=== PATIENT | male | born 1990 | race African-American/Black ===

== ENCOUNTER 2019-07-15 14:20 | Emergency (ER) | payer OTHER ==
[~2019-07-15] VITALS: Ht 170.2 cm; Wt 63.5 kg
[2019-07-15] MEDS ORDERED: TAMIFLU75 MG PO (16:19)
[2019-07-15] MEDS ORDERED: PROMETH-CODEIN 65 ML PO (16:20)
[2019-07-15 16:29] VITALS: BP 121/68
== END 2019-07-15 16:33 | disposition home or self-care (01) ==
LOC: ER 14:20
DX: R05 Cough (principal); R09.81 Nasal congestion

== ENCOUNTER 2019-11-30 23:02 | Emergency (ER) | payer OTHER ==
[~2019-11-30] VITALS: Ht 172.7 cm; Wt 63.5 kg
[~2019-11-30 23:02] MED LIST: PROMETH-CODEIN 65 ML PO; TAMIFLU75 MG PO
[2019-12-01 00:03] LABS: HEMATOCRIT 46.4 % (42.0-52.0); HEMOGLOBIN 15.9 gm/dL (14.0-18.0); MCH 32.2 pg (26.0-34.0); MCHC 34.3 g/dL (28.0-37.0); MCV 93.8 fL (80.0-100.0); PLATELET COUNT 137 thou/uL (150-400); RBC 4.95 mil/uL (4.50-6.00); RDW 13.7 % (10.5-14.5); WBC 4.2 thou/uL (4.0-11.0)
[2019-12-01 00:12] LABS: URINE BILIRUBIN 1+ (Negative); URINE BLOOD TRACE (Negative); URINE CLARITY CLEAR; URINE COLOR YELLOW; URINE GLUCOSE-RANDOM* NEGATIVE (Negative); URINE KETONES NEGATIVE (Negative); URINE LEUKOCYTES-REFLEX NEGATIVE (Negative); URINE NITRITE-REFLEX NEGATIVE (Negative); URINE PROTEIN (DIPSTICK) TRACE (Negative); URINE SPECIFIC GRAVITY >= 1.030 (1.005-1.035)
[2019-12-01 00:38] LABS: CALCIUM 8.5 mg/dL (8.5-10.1); POTASSIUM 3.5 mmol/L (3.5-5.1)
[2019-12-01 00:42] LABS: ALBUMIN 3.9 g/dL (3.4-5.0); TOTAL BILIRUBIN 0.7 mg/dL (0.2-1.0); TOTAL PROTEIN 7.6 g/dL (6.4-8.2)
[2019-12-01 01:50] LABS: ABSOLUTE NEUTROPHILS 1.3 thou/uL (1.4-8.2); PLATELET ESTIMATE DECREASED
[2019-12-01 03:13] VITALS: BP 114/78
== END 2019-12-01 03:14 | disposition home or self-care (01) ==
LOC: ER 23:02
PROVIDERS: Emergency Medicine
DX: B34.9 Viral infection, unspecified (principal); R51 Headache; Z79.899 Other long term (current) drug therapy; Z20.828 Contact with and (suspected) exposure to other viral communicable diseases

== ENCOUNTER 2019-12-23 00:17 | Emergency (ER) | payer OTHER ==
[~2019-12-23] VITALS: Ht 172.7 cm; Wt 63.5 kg
[2019-12-23] MEDS ORDERED: AMOXIL 875 MG875 M1 PO (03:01)
[2019-12-23 03:05] VITALS: BP 147/89
== END 2019-12-23 03:05 | disposition home or self-care (01) ==
LOC: ER 00:17
DX: J02.0 Streptococcal pharyngitis (principal); Z20.828 Contact with and (suspected) exposure to other viral communicable diseases; Z98.890 Other specified postprocedural states